=== PATIENT | female | born 1990 | race Caucasian/White ===

== ENCOUNTER 2019-04-30 12:32 | Outpatient (CLI) | payer OTHER | END 2019-04-30 12:33 | disposition EMS.NT | LOC: EMS 12:32 | PROVIDERS: ATTEND Surgery | DX: R07.89 Other chest pain (principal); V53.5XXA Driver of pick-up truck or van injured in collision with car, pick-up truck or van in traffic accident, initial encounter; Y92.413 State road as the place of occurrence of the external cause ==

== ENCOUNTER 2019-04-30 14:00 | Emergency (ER) | payer OTHER ==
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
[2019-04-30] MEDS ORDERED: ACETAMINOPHEN 325 MG TABLET PO STA (16:52)
[2019-04-30] MEDS ORDERED: IBUPROFEN 600 MG TABLET PO STA (16:52)
[2019-04-30 18:38] LABS: HCG,QUALITATIVE BLOOD NEGATIVE
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
[2019-04-30] MEDS ORDERED: HYDROcod/ACET 5/325 Prepack 4 PO STA (19:54)
[2019-04-30 20:13] VITALS: BP 120/73
== END 2019-04-30 20:05 | disposition home or self-care (01) ==
LOC: ED 14:00
DX: S16.1XXA Strain of muscle, fascia and tendon at neck level, initial encounter (principal); S39.012A Strain of muscle, fascia and tendon of lower back, initial encounter; S70.11XA Contusion of right thigh, initial encounter; V43.52XA Car driver injured in collision with other type car in traffic accident, initial encounter
CPT/HCPCS: 36415; 72125; 72128; 84703; 99284; A9270